=== PATIENT | female | born 1955 | race Hispanic/Latino ===

== ENCOUNTER 2020-03-31 08:54 | Emergency (ER) | payer OTHER ==
[2020-03-31] MEDS ORDERED: HYDROmorphone 1 MG/1 ML INJ IV ONE (10:39)
--- NOTE | 2020-03-31 10:46 | Emergency Department Report ---
ED General Adult HPI - General Chief complaint: Fall Stated complaint: RT HIP PAIN PUI?: No Time Seen by Provider: 03/31/20 09:14 Source: patient, EMS Mode of arrival: Stretcher Limitations: Physical Limitation - History of Present Illness Initial comments: The patient was evaluated in the emergency department for symptoms described in the history of present illness. He/she was evaluated in the context of the global COVID-19 pandemic, which necessitated consideration that the patient might be at risk for infection with the virus that causes COVID-19. Institutional protocols and algorithms that pertain to the evaluation of patients at risk for COVID-19 are in a state of rapid change based on information released by regulatory bodies including the CDC and federal and state organizations. These policies and algorithms were followed during the patient's care in the emergency department. Please note that these policies, procedures and recommendations changed on a rapid basis. Primary CARE doctor: Carlos Alberto Patient is a 64-year-old female. She is not known to myself previously. Past medical history includes arthritis, bilateral total knee replacement, asthma, diabetes, hypertension and obesity. The patient presents to the ER today with a primary complaint of traumatic right proximal hip and femur pain. Patient reports that she was in her usual state of health today, and while in the shower, began to become lightheaded, without pain, and thinks that she might have passed out. She is not sure. She believes that she landed on her right hip. Prior to this, she denies headache, neck pain, chest pain, abdominal pain, shortness of breath. Denies fever, cough, loss of taste, loss of smell, and Covid symptomatology. After this, patient reports severe sharp throbbing right-sided hip pain, which increases with palpation, range of motion, decreases with rest and position. No other injuries. No other complaints. Denies DVT, pulmonary embolism risk factors. -: Sudden Location: right, lower extremity Consistency: constant Improves with: medication, rest Worsens with: movement - Related Data Allergies Allergy/AdvReac Type Severity Reaction Status Date / Time crayfish Allergy Unknown Verified 03/31/20 09:03 ED Review of Systems ROS: Stated complaint: RT HIP PAIN Other details as noted in HPI Constitutional: denies: fever, malaise, weakness ENT: denies: congestion Respiratory: denies: cough Cardiovascular: syncope. denies: chest pain Gastrointestinal: denies: abdominal pain, nausea, vomiting, hematemesis, melena, hematochezia Genitourinary: denies: dysuria Musculoskeletal: arthralgia, myalgia Neurological: weakness. denies: numbness, paresthesias Psychiatric: anxiety Hematological/Lymphatic: denies: easy bleeding ED Past Medical Hx - Past Medical History Previous Medical History?: Yes Hx Hypertension: Yes Hx Diabetes: Yes Hx Asthma: Yes - Surgical History Additional Surgical History: Bilateral hip and knee replacement - Social History Smoking Status: Never Smoker ED Physical Exam - General Limitations: Physical Limitation General appearance: alert, anxious, in distress, obese - Head Head exam: Present: atraumatic, normocephalic - Eye Eye exam: Present: normal appearance, EOMI. Absent: nystagmus - ENT ENT exam: Present: normal exam, normal orophraynx, mucous membranes moist, normal external ear exam - Neck Neck exam: Present: normal inspection, full ROM. Absent: tenderness, meningismus - Respiratory Respiratory exam: Present: normal lung sounds bilaterally. Absent: respiratory distress, wheezes, rales, rhonchi, stridor, decreased breath sounds - Cardiovascular Cardiovascular Exam: Present: regular rate, normal rhythm, normal heart sounds. Absent: bradycardia, tachycardia, irregular rhythm, systolic murmur, diastolic murmur, rubs, gallop - GI/Abdominal GI/Abdominal exam: Present: soft. Absent: distended, tenderness, guarding, rebound, rigid, pulsatile mass - Extremities Exam Extremities exam: Present: normal inspection, tenderness, other (2+ pulses noted in the bilateral upper and lower extremities. Sensation is intact to light touch and pinch in the bilateral upper and lower extremities. Range of motion intact in the bilateral upper extremities, left lower extremity, and right foot/ankle. Bilateral knees nontender. Right leg shortened and internally rotated, very tender in the right hip, and proximal thigh. Muscular compartments are soft.). Absent: calf tenderness - Back Exam Back exam: Present: normal inspection. Absent: tenderness, CVA tenderness (R), CVA tenderness (L), paraspinal tenderness, vertebral tenderness - Neurological Exam Neurological exam: Present: alert, oriented X3, other (No facial droop. Tongue midline. Extraocular movements intact bilaterally. Facial sensation intact to light touch in V1, V2, V3 distribution bilaterally. 5 and a 5 strength in 4 ext remities. Sensation intact to light touch in 4 extremities.) - Psychiatric Psychiatric exam: Present: anxious - Skin Skin exam: Present: warm, dry, intact, normal color. Absent: rash ED Course Vital Signs 03/31/20 03/31/20 03/31/20 09:03 09:45 10:31 Temperature 97.5 F L Pulse Rate 57 L 60 61 Pulse Rate [ Intra-Procedure ] Pulse Rate [ Post-Procedure] Pulse Rate [Pre -Procedure] Respiratory 15 22 14 Rate Respiratory Rate [Intra- Procedure] Respiratory Rate [Post- Procedure] Respiratory Rate [Pre- Procedure] Blood Pressure 119/53 93/55 121/73 Blood Pressure [Intra- Procedure] Blood Pressure [Post-Procedure ] Blood Pressure [Pre-Procedure] O2 Sat by Pulse 98 100 100 Oximetry O2 Sat by Pulse Oximetry [ Intra-Procedure ] O2 Sat by Pulse Oximetry [Post -Procedure] O2 Sat by Pulse Oximetry [Pre- Procedure] 03/31/20 03/31/20 03/31/20 11:15 11:45 11:51 Temperature Pulse Rate 58 L 59 L Pulse Rate [ 55 L Intra-Procedure ] Pulse Rate [ Post-Procedure] Pulse Rate [Pre 54 L -Procedure] Respiratory 14 10 L Rate Respiratory 15 Rate [Intra- Procedure] Respiratory Rate [Post- Procedure] Respiratory 17 Rate [Pre- Procedure] Blood Pressure 124/71 125/78 Blood Pressure 104/54 [Intra- Procedure] Blood Pressure [Post-Procedure ] Blood Pressure 135/73 [Pre-Procedure] O2 Sat by Pulse 96 100 Oximetry O2 Sat by Pulse 100 Oximetry [ Intra-Procedure ] O2 Sat by Pulse Oximetry [Post -Procedure] O2 Sat by Pulse 98 Oximetry [Pre- Procedure] 03/31/20 03/31/20 03/31/20 11:56 12:00 12:31 Temperature Pulse Rate 56 L 57 L Pulse Rate [ Intra-Procedure ] Pulse Rate [ 55 L Post-Procedure] Pulse Rate [Pre -Procedure] Respiratory 13 12 Rate Respiratory Rate [Intra- Procedure] Respiratory 14 Rate [Post- Procedure] Respiratory Rate [Pre- Procedure] Blood Pressure 99/52 120/63 Blood Pressure [Intra- Procedure] Blood Pressure 99/50 [Post-Procedure ] Blood Pressure [Pre-Procedure] O2 Sat by Pulse 100 100 Oximetry O2 Sat by Pulse Oximetry [ Intra-Procedure ] O2 Sat by Pulse 100 Oximetry [Post -Procedure] O2 Sat by Pulse Oximetry [Pre- Procedure] 03/31/20 03/31/20 03/31/20 12:45 13:35 14:45 Temperature Pulse Rate 54 L 56 L 54 L Pulse Rate [ Intra-Procedure ] Pulse Rate [ Post-Procedure] Pulse Rate [Pre -Procedure] Respiratory 12 18 12 Rate Respiratory Rate [Intra- Procedure] Respiratory Rate [Post- Procedure] Respiratory Rate [Pre- Procedure] Blood Pressure 108/61 131/104 142/66 Blood Pressure [Intra- Procedure] Blood Pressure [Post-Procedure ] Blood Pressure [Pre-Procedure] O2 Sat by Pulse 100 100 100 Oximetry O2 Sat by Pulse Oximetry [ Intra-Procedure ] O2 Sat by Pulse Oximetry [Post -Procedure] O2 Sat by Pulse Oximetry [Pre- Procedure] 03/31/20 15:00 Temperature Pulse Rate 62 Pulse Rate [ Intra-Procedure ] Pulse Rate [ Post-Procedure] Pulse Rate [Pre -Procedure] Respiratory 14 Rate Respiratory Rate [Intra- Procedure] Respiratory Rate [Post- Procedure] Respiratory Rate [Pre- Procedure] Blood Pressure 136/69 Blood Pressure [Intra- Procedure] Blood Pressure [Post-Procedure ] Blood Pressure [Pre-Procedure] O2 Sat by Pulse 100 Oximetry O2 Sat by Pulse Oximetry [ Intra-Procedure ] O2 Sat by Pulse Oximetry [Post -Procedure] O2 Sat by Pulse Oximetry [Pre- Procedure] - Reevaluation(s) Reevaluation #1: 03/31/20 10:47 Differential diagnosis, including but not limited to: Pelvic fracture, femur fracture, orthostasis, vagal event, structural cardiac disease, closed head injury, cervical spine injury Assessment and plan: 64-year-old female with clinical and obvious deformity to right lower extremity, without evidence of neurovascular compromise. She is afebrile, with reassuring vital signs. Treat pain, obtain EKG, laboratory studies, x-ray the chest, pelvis, right femur, CT scan of the brain, cervical spine, reassess after initial data points. No pulmonary embolism or DVT risk factors. Low risk by Wells criteria. Discussed plan of care with the patient, who verbalized understanding, and is amenable to this plan of care. Reevaluation #2: 03/31/20 12:00 X-ray shows a dislocated right proximal femur. No other obvious injuries noted. Patient states that she ate more than 4 hours prior to presentation. Risks, benefits, alternatives discussed with patient regarding need for moderate sedation and closed hip reduction. Patient signed a written informed consent for closed hip reduction, reduction performed under moderate sedation and close supervision by myself, patient's nu rse, and respiratory therapy, Ms Alicia Rodriguez Suspect that leg is clinically reduced. Awaiting confirmatory x-ray. Please see procedure note for further details. 03/31/20 13:20 Patient reexamined. X-ray confirms appropriate reduction. Patient states pain completely resolved. Patient awake, alert, oriented, clinically examinable. At this point in time, the cervical spine is cleared through the [employer] and [place] C-spine rule. CT scan brain is pending 03/31/20 16:04 CT scan of the brain is negative for acute findings. X-ray of the pelvis shows appropriate reduction of hip dislocation. Patient reports significant improvement in symptoms. Abductor pillow was placed by nursing team, I have inspected it, and it appears to be in appropriate position. Patient is eating, and feels improved. Contacted [facility], and discussed patient's history, physical, procedures, and pertinent laboratory studies with Dr. Patterson, patient has been coordinated for transfer to [facility], for continuity of care, and as per current [facility] policies/procedures/protocol. Given that patient complained of nonspecific dizziness/lightheadedness, and fell with enough force to dislocate her right hip, cardiac risk ratification/presyncope evaluation is indicated. I have discussed this with the patient, and she is amenable to this plan of care. Patient is excepted to the medical service at [facility], for continuity of care, under the care of Dr. Micheal Hoffman - Moderate Sedation Indications: fracture/dislocation redu Presedation Evaluation: Patient states she did not eat this morning. She has not eaten for more than 4 hours prior to ER presentation. ASA Class: III Mallampati Airway Score: 2 Preparation: industrial manufacturing technician applied, pulse oximeter, capnometry used, supplemental O2 applied Ketamine: IV Ketamine Dose: 50 IV Propofol Dose (mgs): 50 Complications: none Interventions: oxygen applied Patient Tolerated Procedure: well - Orthopedic Joint Reduction Joint #1 Consent Obtained: verbal consent, written consent Time Out Performed: Yes Side: right Joint Reduction Location: hip Analgesia: moderate sedation Technique Used: direct manipulation Post-Reduction Neuro Exam: intact Post-Reduction Vascular Exam: intact Post Reduction X-Ray Obtained: Yes Post Reduction X-Ray Results: reduced Splint Applied: Yes Patient Tolerated Procedure: well ED Medical Decision Making - Lab Data Result diagrams: 03/31/20 11:09 03/31/20 11:09 Vital Signs 03/31/20 03/31/20 09:03 09:45 Temperature 97.5 F L Pulse Rate 57 L 60 Respiratory 15 22 Rate Blood Pressure 119/53 93/55 O2 Sat by Pulse 98 100 Oximetry - EKG Data -: EKG Interpreted by Dc EKG shows normal: sinus rhythm Rate: normal - EKG Data When compared to previous EKG there are: previous EKG unavailable 03/31/20 10:49 There is no prior EKG available for comparison. Sinus rhythm, bradycardia, 55 bpm, normal axis, normal intervals, poor R wave progression, and left ventricular hypertrophy. The EKG is abnormal. The EKG is not a STEMI. - Radiology Data Radiology results: pending, report reviewed, image reviewed AP PELVIS INDICATION: fall leg pain. COMPARISON: None available. FINDINGS: Femoral component of the right total hip arthroplasty is dislocated superior laterally. A left total hip arthroplasty is noted in expected position. No pelvic fracture. Signer Name: Gabriel Padron MD Signed: 03/31/2020 10:47 AM Workstation Name: [id number] RIGHT FEMUR 4 VIEW(S) INDICATION / CLINICAL INFORMATION: fall leg pain COMPARISON: None available. FINDINGS: BONES / JOINT(S): The femoral component of the right total hip arthroplasty is dislocated superolaterally with respect to the acetabular cup. No fracture of right femur. Right total knee arthroplasty. SOFT TISSUES: No significant abnormality. ADDITIONAL FINDINGS: None. CHEST 1 VIEW 03/31/2020 10:42 AM INDICATION / CLINICAL INFORMATION: syncope. COMPARISON: None available. FINDINGS: SUPPORT DEVICES: None. HEART / MEDIAST INUM: Cardiomegaly LUNGS / PLEURA: No significant pulmonary or pleural abnormality. No pneumothorax. ADDITIONAL FINDINGS: Right shoulder arthroplasty and spinal stimulator probes midthoracic spine IMPRESSION: 1. Cardiomegaly without CHF Signer Name: Gabriel Padron MD Signed: 03/31/2020 10:47 AM Workstation Name: [id number] Print Report Referring Physician: IRENE HEBERT Patient Name: RICKI GUO Date of : 1955 Sex: Female Report Date: 2020-03-31 Report Status: Finalized Findings [facility] [address] [place] [address] XRay Report Signed Patient: RICKI GUO MR#: [id number] : 1955 Acct:[id number] Age/Sex: 64 / F ADM Date: 03/31/20 Loc: ED Attending Dr: Ordering Physician: IRENE HEBERT MD Date of Service: 03/31/20 Procedure(s): XR pelvis 1-2V Accession Number(s): [id number] cc: IRENE HEBERT MD Fluoro Time In Minutes: AP PELVIS INDICATION: s/p reduction. COMPARISON: Pelvic x-ray 11:23 AM same day FINDINGS: The femoral component of the right total hip arthroplasty has been reduced and now projects in expected position with respect to the acetabular cup. Left total hip arthroplasty again noted. No pelvic fracture Signer Name: Gabriel Padron MD Signed: 03/31/2020 12:21 PM Workstation Name: [id number] Transcribed By: TL Dictated By: Gabriel Padron MD Electronically Authenticated By: Gabriel Padron MD Signed Date/Time: 03/31/20 1221 DD/ 1220 TD/TT: Critical care attestation.: If time is entered above; I have spent that time in minutes in the direct care of this critically ill patient, excluding procedure time. ED Disposition Clinical Impression: Syncope, near Dislocation of right hip Qualifiers: Encounter type: initial encounter Qualified Code(s): S73.004A - Unspecified dislocation of right hip, initial encounter Disposition: DC/TX-70 ANOTHER TYPE HLTHCARE Is pt being admited?: No Condition: Good Instructions: Moderate Conscious Sedation, Adult, Hip Dislocation Referrals: [facility] [Other] - 3-5 Days Heart Score - HEART Score History: Slightly suspicious EKG: Non-specific Age: 45-65 Risk factors: > 3 risk factors or hx of atherosclerotic disease Troponin: < normal limit HEART Score: 4 - Critical Actions Critical Actions: 4-6 pts:12-16.6% risk of adverse cardiac event. Should be admitted
[2020-03-31] MEDS ORDERED: SODIUM CHLORIDE 0.9% 500 ML 500 ML IV ONE (10:48)
[2020-03-31 11:21] LABS: Hematocrit 39.5 % (30.3-42.9); Hemoglobin 13.1 gm/dl (10.1-14.3); Mean Corpuscular HGB Conc 33 % (30-34); Mean Corpuscular Volume 94 fl (79-97); Platelet Count 252 K/mm3 (140-440); Red Blood Count 4.22 M/mm3 (3.65-5.03); Red Cell Distribution Width 13.6 % (13.2-15.2)
[2020-03-31 11:32] LABS: INR 0.96 (0.87-1.13)
[2020-03-31] MEDS ORDERED: propofoL 200 MG/20 ML VIAL IV ONE (11:32)
[2020-03-31] MEDS ORDERED: ONDANSETRON 4 MG/2 ML INJ IV ONE (11:32)
[2020-03-31] MEDS ORDERED: KETAMINE 500 MG/5 ML VIAL MDV IV ONE (11:32)
--- NOTE | 2020-03-31 11:50 | XRay Report ---
RIGHT FEMUR 4 VIEW(S) INDICATION / CLINICAL INFORMATION: fall leg pain COMPARISON: None available. FINDINGS: BONES / JOINT(S): The femoral component of the right total hip arthroplasty is dislocated superolater ally with respect to the acetabular cup. No fracture of right femur. Right total knee arthroplasty. SOFT TISSUES: No significant abnormality. ADDITIONAL FINDINGS: None. Signer Name: Gabriel Padron MD Signed: 03/31/2020 11:46 AM Workstation Name: [id number]
--- NOTE | 2020-03-31 11:51 | XRay Report ---
CHEST 1 VIEW 03/31/2020 10:42 AM INDICATION / CLINICAL INFORMATION: syncope. COMPARISON: None available. FINDINGS: SUPPORT DEVICES: None. HEART / MEDIASTINUM: Cardiomegaly LUNGS / PLEURA: No significant pulmonary or pleural abnormality. No pneumothorax. ADDITIONAL FINDINGS: Right shoulder arthroplasty and spinal stimulator probes midthoracic spine IMPRESSION: 1. Cardiomegaly without CHF Signer Name: Gabriel Padron MD Signed: 03/31/2020 11:47 AM Workstation Name: [id number]
--- NOTE | 2020-03-31 11:51 | XRay Report ---
AP PELVIS INDICATION: fall leg pain. COMPARISON: None available. FINDINGS: Femoral component of the right total hip arthroplasty is dislocated superior laterally. A left total hip arthroplasty is noted in expected position. No pelvic fracture. Signer Name: Gabriel Padron MD Signed: 03/31/2020 11:47 AM Workstation Name: [id number]
[2020-03-31 11:52] LABS: Alanine Aminotransferase 15 units/L (7-56); Albumin 3.7 g/dL (3.9-5); BUN/Creatinine Ratio 17; Blood Urea Nitrogen 19 mg/dL (7-17); Calcium 8.9 mg/dL (8.4-10.2); Hemolysis Index 4
--- NOTE | 2020-03-31 12:25 | XRay Report ---
AP PELVIS INDICATION: s/p reduction. COMPARISON: Pelvic x-ray 11:23 AM same day FINDINGS: The femoral component of the right total hip arthroplasty has been reduced and now projects in expect ed position with respect to the acetabular cup. Left total hip arthroplasty again noted. No pelvic fr acture Signer Name: Gabriel Padron MD Signed: 03/31/2020 12:21 PM Workstation Name: [id number]
--- NOTE | 2020-03-31 14:01 | Cat Scan Report ---
CT HEAD WITHOUT CONTRAST INDICATION : Syncope with collapse. Possible closed head injury. TECHNIQUE: Axial, coronal and sagittal CT imaging was performed from the skull apex through the skul l base without contrast. All CT scans at this location are performed using CT dose reduction for ALA RA by means of automated exposure control. COMPARISON: CT head without contrast from 11/21/2011. FINDINGS: PARENCHYMA: No mass, midline shift, hemorrhage, extraaxial collection or acute territorial infarctio n. VENTRICLES: Symmetric and normal in size. SOFT TISSUES: No significant abnormality of the included soft tissues/orbits. BONES: No acute osseous abnormality. SINUSES: No significant abnormality. ADDITIONAL FINDINGS: None. IMPRESSION: 1. No acute intracranial abnormality. Signer Name: Kannan Andre MD Signed: 03/31/2020 1:57 PM Workstation Name: [id number]
[2020-03-31 15:17] VITALS: BP 136/69
[2020-03-31] MEDS ORDERED: ASPIRIN 81 MG TAB CHEW PO ONE (16:07)
[2020-03-31] MEDS ORDERED: fentaNYL 100 MCG/2 ML INJ IV ONE (16:30)
[2020-03-31] MEDS ORDERED: fentaNYL 100 MCG/2 ML INJ ONE (18:59)
== END 2020-03-31 19:48 | disposition other institution (70) ==
LOC: ED 08:54
DX: S73.004A Unspecified dislocation of right hip, initial encounter (principal); R55 Syncope and collapse; I10 Essential (primary) hypertension; E11.9 Type 2 diabetes mellitus without complications; J45.909 Unspecified asthma, uncomplicated; Z91.013 Allergy to seafood; Z98.890 Other specified postprocedural states; X58.XXXA Exposure to other specified factors, initial encounter; Y93.89 Activity, other specified; Y92.89 Other specified places as the place of occurrence of the external cause; Y99.8 Other external cause status
CPT/HCPCS: 27250; 36415; 70450; 71045; 72170; 73552; 80053; 82550; 83735; 84443; 84484; 85027; 85610; 93005; 96361; 96374; 96375; 99285; J1170; J2405; J2704; J3010; J7040

== ENCOUNTER 2021-04-07 | Emergency (ER) | payer MEDICARE ==
[2021-04-07] MEDS ORDERED: SODIUM CHLORIDE 0.9% 1000 ML 1,000 ML IV ONE (01:21)
[2021-04-07] MEDS ORDERED: MORPHINE 2 MG/1 ML INJ IV ONE (01:21)
--- NOTE | 2021-04-07 01:26 | Emergency Department Report ---
ED Female HPI - General Chief complaint: Vaginal Bleeding Stated complaint: VAGINAL BLEEDING Time Seen by Provider: 04/07/21 00:57 Source: EMS Mode of arrival: Stretcher Limitations: No Limitations - History of Present Illness Initial comments: 65-year-old female presents to ED with vaginal bleeding. Patient reports bleeding after having sex tonight. States she has not had sex in over 1 year. Patient states he is passing blood clots. She is reporting some vaginal pain as well. Patient reports history of hysterectomy. Patient denies being on any blood thinners. Patient denies use of any sex toys or instruments. MD Complaint: vaginal bleeding -: This morning Severity: moderate Quality: aching Consistency: constant Improves with: none Worsens with: none Associated Symptoms: vaginal bleeding - Related Data Allergies Allergy/AdvReac Type Severity Reaction Status Date / Time crayfish Allergy Unknown Verified 04/07/21 00:04 ED Review of Systems ROS: Stated complaint: VAGINAL BLEEDING Other details as noted in HPI Comment: All other systems reviewed and negative Genitourinary: as per HPI ED Past Medical Hx - Past Medical History Hx Hypertension: Yes Hx Diabetes: Yes Hx Asthma: Yes - Surgical History Additional Surgical History: Bilateral hip and knee replacement - Social History Smoking Status: Never Smoker ED Physical Exam - General Limitations: No Limitations General appearance: alert, in no apparent distress - Head Head exam: Present: atraumatic, normocephalic - Eye Eye exam: Present: normal appearance - ENT ENT exam: Present: mucous membranes moist - Neck Neck exam: Present: normal inspection - Respiratory Respiratory exam: Present: normal lung sounds bilaterally. Absent: respiratory distress - Cardiovascular Cardiovascular Exam: Present: normal rhythm, tachycardia - GI/Abdominal GI/Abdominal exam: Present: soft, tenderness (Suprapubic). Absent: distended - Speculum exam: Present: laceration (laceration and bruising noted along the left vaginal wall on speculum exam; clots cleared from vault but there is still some pooling of blood present; pooling is not brisk), other (HAWA Muñoz pathology assistant) - Extremities Exam Extremities exam: Present: normal inspection - Neurological Exam Neurological exam: Present: alert, oriented X3 - Psychiatric Psychiatric exam: Present: normal affect, normal mood - Skin Skin exam: Present: warm, dry, intact, normal color ED Course Vital Signs 04/07/21 04/07/21 04/07/21 00:03 03:40 03:46 Temperature 98.9 F Pulse Rate 110 H Respiratory 16 Rate Blood Pressure Blood Pressure 160/116 [Left] O2 Sat by Pulse 98 91 99 Oximetry 04/07/21 04/07/21 04/07/21 03:52 04:01 04:15 Temperature Pulse Rate 87 Respiratory 16 Rate Blood Pressure 121/67 Blood Pressure 115/46 [Left] O2 Sat by Pulse 100 100 95 Oximetry 04/07/21 04/07/21 04/07/21 04:26 04:31 04:45 Temperature Pulse Rate 89 Respiratory 18 Rate Blood Pressure 122/71 124/64 Blood Pressure 121/67 [Left] O2 Sat by Pulse 100 100 99 Oximetry 04/07/21 04/07/21 04/07/21 05:01 05:15 05:30 Temperature Pulse Rate Respiratory Rate Blood Pressure 133/66 108/66 134/83 Blood Pressure [Left] O2 Sat by Pulse 99 99 99 Oximetry 04/07/21 05:45 Temperature Pulse Rate Respiratory Rate Blood Pressure 128/95 Blood Pressure [Left] O2 Sat by Pulse 99 Oximetry - Consultations Consultation #1: 04/07/21 04:11 Spoke w/ Dr Jose izaguirre/ Carlos Alberto. States pt's Hb was 13 earlier this month. [facility] will contact their CASE THERAPIST. 04/07/21 04:[address] Leigh, FOREIGN LANGUAGE INTERPRETER at [facility]. [facility] will arrange transportation. ED Medical Decision Making - Lab Data Result diagrams: 04/07/21 01:32 04/07/21 01:32 - Medical Decision Making 65-year-old female presents to ED with post-coital vaginal bleeding. Patient reporting heavy bleeding with clots. On exam, patient appears to have a possible laceration of the left lateral wall of her vagina. Blood clots cleared from vaginal vault. Patient with continued oozing of blood. Hemoglobin is 10.8 today. According to [facility] physician, patient had a hemoglobin of 13 couple of weeks ago. [facility] physician has arranged transfer to [facility]. Transfer has been accepted by FOREIGN LANGUAGE INTERPRETER, Dr. Leigh. Tachycardia has resolved. Vital signs are stable. Awaiting transportation. - Differential Diagnosis Laceration Critical care attestation.: If time is entered above; I have spent that time in minutes in the direct care of this critically ill patient, excluding procedure time. ED Disposition Clinical Impression: Vaginal bleeding, Vaginal trauma Disposition: 02 SHORT TERM HOSPITAL Is pt being admited?: No Condition: Stable Referrals: PRIMARY CARE,MD [Primary Care Provider] - 3-5 Days Time of Disposition: 04:49
[2021-04-07 01:42] LABS: Basophils # (Auto) 0.1 K/mm3 (0.0-0.1); Basophils % (Auto) 0.6 % (0.0-1.8); Eosinophils # (Auto) 0.1 K/mm3 (0.0-0.4); Hematocrit 33.3 % (30.3-42.9); Hemoglobin 10.8 gm/dl (10.1-14.3); Lymphocytes # (Auto) 1.5 K/mm3 (1.2-5.4); Lymphocytes % (Auto) 12.2 % (13.4-35.0); Mean Corpuscular HGB Conc 33 % (30-34); Mean Corpuscular Volume 92 fl (79-97); Monocytes # (Auto) 1.1 K/mm3 (0.0-0.8); Monocytes % (Auto) 8.8 % (0.0-7.3); Platelet Count 232 K/mm3 (140-440); Red Blood Count 3.62 M/mm3 (3.65-5.03); Red Cell Distribution Width 13.2 % (13.2-15.2)
[2021-04-07 01:50] LABS: INR 0.96 (0.87-1.13)
[2021-04-07 01:51] LABS: Partial Thromboplastin Time 25.3 Sec. (24.2-36.6)
[2021-04-07 01:58] LABS: Calcium 8.7 mg/dL (8.4-10.2)
[2021-04-07 09:26] VITALS: BP 121/73
== END 2021-04-07 09:26 | disposition short-term general hospital (02) ==
LOC: ED
DX: N93.9 Abnormal uterine and vaginal bleeding, unspecified (principal); I10 Essential (primary) hypertension; E11.9 Type 2 diabetes mellitus without complications; J45.909 Unspecified asthma, uncomplicated; R79.1 Abnormal coagulation profile; Z91.013 Allergy to seafood
CPT/HCPCS: 36415; 80048; 85025; 85610; 85730; 96361; 96374; 99285; J2270; J7030; Q0162